=== PATIENT | female | born 1975 | race Two or more races ===

== ENCOUNTER 2019-01-27 09:00 | Outpatient (CLI) | payer OTHER | END 2019-01-27 10:00 | disposition home or self-care (01) | LOC: NUCLEAR 09:00 | DX: C73 Malignant neoplasm of thyroid gland (principal) | CPT/HCPCS: 78018; 78020; A9528 ==

== ENCOUNTER 2022-02-05 10:41 | Outpatient (CLI) | payer OTHER | END 2022-02-05 10:50 | disposition home or self-care (01) | LOC: SONOGRAMA 10:41 | PROVIDERS: ATTEND Pathology Anatomic Pathology & Clinical Pathology | DX: C73 Malignant neoplasm of thyroid gland (principal); R59.0 Localized enlarged lymph nodes ==